=== PATIENT | female | born 1970 | race Caucasian/White ===

== ENCOUNTER 2017-10-31 20:09 | Emergency (ER) | payer SELFPAY ==
[2017-10-31 21:35] LABS: BASOPHIL % 0.7 % (0-2); PLATELET COUNT 266 x10^3mcL (130-400)
[2017-10-31 21:38] LABS: CALCIUM 9.5 mg/dL (8.5-10.1); CARBON DIOXIDE 27.1 mmol/L (21-32); CHLORIDE SERUM 103 mmol/L (98-107); GFR1 > 60 mL/min; GLUCOSE SERUM 105 mg/dL (74-106); POTASSIUM SERUM 3.5 mmol/L (3.5-5.1); SODIUM SERUM 141 mmol/L (136-145)
[2017-10-31 21:39] LABS: RED CELL DISTRIBUTION WIDTH 15.2 % (11.5-14.5)
[2017-10-31 21:43] LABS: ALKALINE PHOSPHATASE 61 U/L (46-116); ALT/SGPT 27 U/L (14-59); AST/SGOT 37 U/L (15-37); BILIRUBIN TOTAL 0.51 mg/dL (0.20-1.00); TOTAL PROTEIN, SERUM 7.9 g/dL (6.4-8.2)
[2017-11-01 05:23] LABS: UA SPECIFIC GRAVITY >=1.030 (1.005-1.035); microscopic required? YES; urine erythrocyte NEGATIVE (NEGATIVE)
[2017-11-01 05:41] LABS: AMPHETAMINE QUAL UR POSITIVE (NEG <=1000)
[2017-11-01 06:46] VITALS: BP 98/63
== END 2017-11-01 06:46 | disposition home or self-care (01) ==
LOC: ED 20:09
PROVIDERS: Emergency Medicine
DX: R56.9 Unspecified convulsions (principal)
CPT/HCPCS: J1953; J2060; J3490